=== PATIENT | female | born 1965 | race Caucasian/White ===

== ENCOUNTER 2017-02-15 00:18 | Emergency (ER) | payer SELFPAY ==
[2017-02-15 00:41] VITALS: BMI 28.3
--- NOTE | 2017-02-15 00:45 | PDOC ---
History of Present Illness - General Chief Complaint: Allergic Reaction Stated Complaint: ALLERGIC REACTION Time Seen by Provider: 02/15/17 00:43 - History of Present Illness Initial Comments: 02/15/17 01:30 51F present to the ED after accidental ingestion of one pill of 100mg Quetiapine from her 's prescription that she mistook for Tylenol. Patient is sleepy but arousable, RR 16, eyes positive for miosis. Past History - Past Medical History Allergies/Adverse Reactions: Allergies Allergy/AdvReac Type Severity Reaction Status Date / Time No Known Allergies Allergy Verified 02/15/17 00:41 Home Medications: Ambulatory Orders Acetaminophen [Tylenol] 650 mg PO HS 02/15/17 - Psycho/Social/Smoking Cessation Hx Suicidal Ideation: No Smoking History: Never smoked Review of Systems - Review of Systems Able to Perform ROS?: No *Physical Exam - Vital Signs Last Vital Signs Temp Pulse Resp BP Pulse Ox 77 16 144/78 99 02/15/17 00:39 02/15/17 00:39 02/15/17 00:39 02/15/17 00:39 - Physical Exam General Appearance: Yes: Nourished, Appropriately Dressed. No: Apparent Distress HEENT: negative: EOMI (b/l miosis) Respiratory/Chest: positive: Lungs Clear, Normal Breath Sounds. negative: Chest Tender Cardiovascular: positive: Regular Rhythm, Regular Rate, S1, S2 Gastrointestinal/Abdominal: positive: Normal Bowel Sounds, Soft Integumentary: positive: Normal Color, Dry, Warm Neurologic: positive: Responsive. negative: Alert (Sleepy), Numbness, Sensory Deficit ED Treatment Course - LABORATORY CBC & Chemistry Diagram: 02/15/17 01:08 02/15/17 01:08 Medical Decision Making - Medical Decision Making 02/15/17 01:42 51F present to the ED after taking a 100mg dose of quetiapine by mistake. Patient sleeping comfortably. EKG negative. labs and lytes negative. *DC/Admit/Observation/Transfer Diagnosis at time of Disposition: Accidental drug ingestion Qualifiers: Encounter type: initial encounter Qualified Code(s): T50.901A - Poisoning by unspecified drugs, medicaments and biological substances, accidental ( unintentional), initial encounter Diagnosis at time of Disposition: (Ruled Out): Poisoning by other antipsychotics and neuroleptics, accidental ( unintentional), initial encounter - Discharge Dispostion Admit: No - Patient Instructions Printed Discharge Instructions: DI for Adverse Drug Reaction -- Allergic, DI for Accidental Ingestion -- Adult
[2017-02-15] MEDS ORDERED: SODIUM CHLORIDE 1,000 ML IV STA (01:00)
--- NOTE | 2017-02-15 01:07 | PDOC ---
Attending Attestation - HPI HPI: 02/15/17 01:11 The patient is a 51 year old female with no pmhx of who presents to the ED with allergic reaction. Patient states that she took 1 pill of Quetiapine, atypical antipsychotic medication, of her 's medication and presents today with complaint of dry throat and tightness. She denies SOB, chest pain or palpitations. - Physicial Exam PE: 02/15/17 01:12 GENERAL: (+)Answers questions appropriately but slowly. Well-appearing, well-nourished. No apparent distress. HEENT: (+)Pupils constricted, No lip swelling, Normocephalic, atraumatic. EOM intact. CARDIOVASCULAR: Normal S1, S2. Regular rate and rhythm. PULMONARY: No respiratory distress. Clear to auscultation bilaterally. ABDOMEN: Soft, non-distended, non-tender. EXTREMITIES: Normal ROM in all four extremities. No gross deformities. SKIN: Warm, dry. No rash NEUROLOGICAL: No focal neurological deficits. - Medical Decision Making 02/15/17 01:13 51 yo F with no pmhx who presented today with throat tightness and dryness after taking 1 pill of her 's antipsychotic medication. She denies any SOB, cp, nausea, vomiting, diarrhea, dizziness, visual changes or LOC. Plan: IVF Labs ECG Documentation prepared by HUMAIRA Christianson, acting as medical director of hospice for Rene Mojica DO. <Jeanne Marlow - Last Filed: 02/15/17 01:15> - Resident Resident Name: Tony Bunn - ED Attending Attestation I have performed the following: I have examined & evaluated the patient, The case was reviewed & discussed with the resident, I agree w/resident's findings & plan, Exceptions are as noted <Rene Mojica - Last Filed: 02/15/17 02:43> Discharge Disposition - Discharge Dispostion Admit: No <Rene Mojica - Last Filed: 02/15/17 02:43> - Diagnosis Accidental drug ingestion Qualifiers: Encounter type: initial encounter Qualified Code(s): T50.901A - Poisoning by unspecified drugs, medicaments and biological substances, accidental ( unintentional), initial encounter - Discharge Dispostion Disposition: HOME Condition at time of disposition: Stable - Patient Instructions Printed Discharge Instructions: DI for Adverse Drug Reaction -- Allergic Heart Score/ECG Review #1 02/15/17 01:10 NS at 60 bpm <Jeanne Marlow - Last Filed: 02/15/17 01:15>
[2017-02-15 01:19] LABS: BASOPHIL 0.3 % (0-2.0); EOSINOPHIL 1.6 % (0-4.5); MCH 26.2 pg (25.7-33.7); MCHC 32.3 g/dl (32.0-36.0); MEAN CELL VOLUME 80.9 fl (80-96); MEAN PLT VOLUME 8.2 fl (7.5-11.1); NEUTROPHILS 56.6 % (42.8-82.8); PLATELET COUNT 186 K/MM3 (134-434); RDW 14.5 % (11.6-15.6); WHITE BLOOD COUNT 6.5 K/mm3 (4.0-10.0)
[2017-02-15 01:43] LABS: ALBUMIN 3.7 g/dl (3.4-5.0); ALK PHOS 121 U/L (45-117); ANION GAP 6 (8-16); BILIRUBIN,TOTAL 0.4 mg/dL (0.2-1.0); CALCIUM 9.1 mg/dL (8.5-10.1); CO2 30 mmol/L (21-32); CREATININE 0.7 mg/dL (0.55-1.02); GLUCOSE,RANDOM 122 mg/dL (74-106); SGOT/AST 21 U/L (15-37); SGPT/ALT 23 U/L (12-78)
[2017-02-15 03:37] VITALS: BP 135/76; PULSE 70
--- NOTE | 2017-02-15 10:43 | EKG ---
Test Reason : Blood Pressure : / mmHG Vent. Rate : 060 BPM Atrial Rate : 060 BPM P-R Int : 126 ms QRS Dur : 086 ms QT Int : 462 ms P-R-T Axes : 012 043 041 degrees QTc Int : 462 ms NORMAL SINUS RHYTHM NORMAL ECG NO PREVIOUS ECGS AVAILABLE Confirmed by PRANAV LOJA MD ([id number]) on 02/15/2017 10:42:47 AM Referred By: Confirmed By:PRANAV LOJA MD
== END 2017-02-15 03:35 | disposition home or self-care (01) ==
LOC: JER 00:18
PROC: 3E0337Z Introduction of Electrolytic and Water Balance Substance into Peripheral Vein, Percutaneous Approach (ICD-10-PCS; principal; 2017-02-15)
DX: T50.901A Poisoning by unspecified drugs, medicaments and biological substances, accidental (unintentional), initial encounter (principal); X58.XXXA Exposure to other specified factors, initial encounter; Y93.89 Activity, other specified; Y92.9 Unspecified place or not applicable
CPT/HCPCS: 36415; 80053; 85025; 93005; 93010; 99283-25